=== PATIENT | female | born 1970 | race Asian ===

== ENCOUNTER 2022-05-20 09:43 | Outpatient (CLI) | payer MEDICARE, OTHER, SELFPAY ==
[2022-05-20 18:30] LABS: MALB Creatinine Ratio 12.9 mg/g (0-30); Microalbumin Urine Random 18.6 mg/L (0-16.7)
[2022-05-20 19:51] LABS: Free T4 Free Thyroxine 1.47 ng/mL (0.78-2.19)
[2022-05-20 19:53] LABS: Alanine Aminotransferase 30 U/L (6-35); Albumin Level 5.2 g/dL (3.5-5.1); Alkaline Phosphatase 61 U/L (38-126); Anion Gap 9 mmol/L (8-16); Aspartate Amino Transferase 63 U/L (14-36); Bilirubin,Total 0.8 mg/dL (0.2-1.3); Blood Urea Nitrogen 14 mg/dL (7-17); Carbon Dioxide 34 mmol/L (22-30); Chloride 98 mmol/L (98-107); Cholesterol 127 mg/dL (0-200); Estimated Glomerular Filt Rate > 60; Glucose 136 mg/dL (65-110); HDL Direct 36 mg/dL; Potassium 3.6 mmol/L (3.4-5.0); Sodium 141 mmol/L (137-145); Triglycerides 122 mg/dL (<150)
[2022-05-20 20:10] LABS: LDL Cholesterol Direct 54 mg/dL
== END 2022-05-20 09:44 | disposition home or self-care (01) ==
PROVIDERS: PCP Family Medicine; Visit Provider Nurse Practitioner Family
DX: E11.9 Type 2 diabetes mellitus without complications (principal); E78.5 Hyperlipidemia, unspecified
CPT/HCPCS: 36415; 80053; 80061; 82043; 82607; 84439; 84443